=== PATIENT | female | born 1990 | race Caucasian/White ===

== ENCOUNTER 2020-11-25 09:17 | Inpatient (IN) ==
[~2020-11-25 09:17] MED LIST: *HR* FentaNYL (PF) 100 MCG/2 ML VIAL IVP ONE; EPHEDrine 50 MG/ML VIAL IVP PRN; Epidural Premix (fent/bupiv) 110 ML EP SCH; Famotidine 20 MG/2 ML VIAL IVP PRN; Metoclopramide 10 MG/2 ML VIAL IVP PRN; Naloxone 0.4 MG/ML INJ IVP PRN; Ringers Solution, Lactated 1,000 ML ONE
[2020-11-25 09:39] LABS: Basophils % 0.1 %; Eosinophils % 0.1 %; Hematocrit 32.8 % (35.3-44.9); Hemoglobin 10.5 g/dL (11.5-15.4); Immature Granulocytes % 0.5 % (0-4); Lymphocytes % 7.2 %; Mean Corpuscular Hemoglobin 25.7 pg (28.0-33.3); Mean Corpuscular Volume 80.2 fL (83.0-100.0); Monocytes # 0.5 K/mcL (0.0-1.3); Monocytes % 3.5 %; Neutrophils # 12.7 K/mcL (1.6-8.9); Platelet Count 226 K/mcL (140-400); Red Blood Count 4.09 M/mcL (3.82-4.97); Segmented Neutrophils % 88.6 %; White Blood Count 14.4 K/mcL (4.3-11.1)
[2020-11-25] MEDS ORDERED: CefOXitin 2,000 MG VIAL ONE (09:41)
[2020-11-25] MEDS ORDERED: *HR* Succinylcholine 200 MG/10 ML VIAL IVP ONE (09:42)
[2020-11-25] MEDS ORDERED: Ondansetron 4 MG/2 ML VIAL ONE (09:42)
[2020-11-25] MEDS ORDERED: Lidocaine -MPF 2% 5 ML VIAL ONE ×2 (09:42→10:21)
[2020-11-25] MEDS ORDERED: *HR* FentaNYL (PF) 100 MCG/2 ML VIAL ONE (09:43)
[2020-11-25 09:48] LABS: Amphetamine Screen,Urine Negative ng/mL (Cutoff=1000); Barbiturate Screen,Urine Negative ng/mL (Cutoff=200); Benzodiazepines Screen,Urine Negative ng/mL (Cutoff=200); Cannabinoid Screen,Urine Negative ng/mL (Cutoff = 50); Cocaine Screen,Urine Negative ng/mL (Cutoff= 300); Opiate Screen,Urine Negative ng/mL (Cutoff=300); Phencyclidine Screen,Urine Negative ng/mL (Cutoff=25)
[2020-11-25] MEDS ORDERED: *HR* Rocuronium Bromide 50 MG/5 ML VIAL ONE (09:48)
[2020-11-25] MEDS ORDERED: Ringers Solution, Lactated 1,000 ML ONE (10:02)
[2020-11-25] MEDS ORDERED: *HR* Oxytocin 10 UNIT/ML VIAL IM ONE ×2 (10:02→11:51)
[2020-11-25] MEDS ORDERED: Ketorolac 30 MG/ML VIAL ONE (10:13)
[2020-11-25] MEDS ORDERED: Methylergonovine 0.2 MG/ML AMPUL IM ONE (11:51)
[2020-11-25] MEDS ORDERED: Lanolin 7 G OINT...G. TP PRN (12:12)
[2020-11-25] MEDS ORDERED: Rho Immune Globulin 1,500 UNIT SYRINGE IM PRN (12:12)
[2020-11-25] MEDS ORDERED: Benzocaine/Menthol 56 GM AEROSOL SPRAY TP PRN (12:12)
[2020-11-25] MEDS ORDERED: Ondansetron ODT 4 MG TAB.RAPDIS SL PRN (12:12)
[2020-11-25] MEDS ORDERED: Measles/Mumps/Rubella Vacc 0.5 ML VIAL SQ PRN (12:12)
[2020-11-25] MEDS ORDERED: Oxytocin 20 units/ LR 1000 mL 20 UNIT/1,000 ML BAG IVC SCH (12:12)
[2020-11-26] MEDS: Ibuprofen 600 MG TABLET PO SCH ×2 (04:18→07:58)
[2020-11-26] MEDS: Acetaminophen 325 MG TABLET PO SCH ×2 (04:18→07:58)
[2020-11-26 04:41] VITALS: BP 118/63; PULSE 68; TEMP 98.3; O2SAT 98
[2020-11-26] MEDS ORDERED: Prenatal Vit/FA 1 EACH TABLET PO SCH (09:00)
== END 2020-11-26 11:52 | disposition home or self-care (01) | DRG 806 ==
LOC: 1NENULAB → 1NENUOBS 12:37
PROVIDERS: ADMIT Advanced Practice Midwife; ATTEND Advanced Practice Midwife